=== PATIENT | female | born 1960 | race Caucasian/White ===

== ENCOUNTER 2021-04-07 05:34 | Day surgery (SDC) | payer OTHER ==
[2021-04-07] VITALS (11 sets, daily range): BP systolic 130–151; BP diastolic 60–70; PULSE 70–99; TEMP 97.2–98.8
[~2021-04-07] VITALS: Ht 165.1 cm; Wt 68.3 kg
[2021-04-07] MEDS ORDERED: PAMELOR 10MG10 MG PO (06:14)
[2021-04-07] MEDS ORDERED: VERELAN180 MG PO (06:14)
[2021-04-07] MEDS ORDERED: PROSCAR 5MG5 MG PO (06:15)
[2021-04-07] MEDS ORDERED: CRESTOR5 MG PO ×2 (06:15)
--- NOTE | 2021-04-07 07:00 | NUR ---
Belongings given to .
--- NOTE | 2021-04-07 13:32 | NUR ---
Patient to room 348 post robotic sacrocolpopexy. See assessment. Abdomen soft, non tender, non distended. Bowel sounds hypoactive x4 quads. No flatus. Lap sites to abdomen with edges well approximated, no redness or drainage noted. No c/o pain or discomfort at this time.
--- NOTE | 2021-04-07 21:45 | NUR ---
Pt. sitting up in bed at this time. Pt. is a&OX3, assessment complete. INT to lt. hand patent. Pt. denies pain or other needs, call light within reach.
[2021-04-08 03:04] VITALS: BP 131/65; PULSE 94; TEMP 98.6
[2021-04-08 07:45] VITALS: BP 95/74; PULSE 78; TEMP 98.4
[2021-04-08] MEDS ORDERED: COLACE 100100 MG/CAP PO (08:43)
[2021-04-08] MEDS ORDERED: NORCO 325 MG-51 TAB PO (08:43)
--- NOTE | 2021-04-08 10:20 | NUR ---
Initial visit; Patient thanked Vacuum Technician for stopping though declined spiritual care.
[2021-04-08] MEDS ORDERED: GENTAMICIN EYE D5 ML OD (11:07)
--- NOTE | 2021-04-08 11:25 | NUR ---
Patient alert and oriented, answers questions appropriately. See assessment. Abdomen soft, non distended, tender to palpation. Lap sites to abdomen with edges well approximated, no redness or drainage noted. Moore catheter removed this a.m., has voided. Post op exercises reviewed with goldy. No c/o at this time.
--- NOTE | 2021-04-08 11:48 | NUR ---
Discharge instructions reviewed with patient, verbalized understanding. Discharged via wheelchair to auto/home with spouse at 1145.
== END 2021-04-08 11:45 | disposition home or self-care (01) ==
LOC: SURG 05:34 → SDCO 05:34 → SURG 11:28 → SDCO 04-08 11:45
DX: N81.3 Complete uterovaginal prolapse (principal); K66.0 Peritoneal adhesions (postprocedural) (postinfection); K21.9 Gastro-esophageal reflux disease without esophagitis; N39.46 Mixed incontinence; E78.5 Hyperlipidemia, unspecified; E78.00 Pure hypercholesterolemia, unspecified; I10 Essential (primary) hypertension; I47.1 Supraventricular tachycardia; K58.0 Irritable bowel syndrome with diarrhea; H52.00 Hypermetropia, unspecified eye; H04.129 Dry eye syndrome of unspecified lacrimal gland; Z20.822 Contact with and (suspected) exposure to COVID-19; Z90.89 Acquired absence of other organs; Z90.710 Acquired absence of both cervix and uterus; Z79.899 Other long term (current) drug therapy; Z80.3 Family history of malignant neoplasm of breast
CPT/HCPCS: OP; A4314; C1781; J0690; J1170; J1650; J1885; J2405; J2704; J2765; J3010; J7120